=== PATIENT | male | born 1980 | race Two or more races ===

== ENCOUNTER 2017-12-04 21:58 | Emergency (ER) | payer OTHER ==
[2017-12-04 22:04] VITALS: BP 140/78
[2017-12-04] MEDS ORDERED: BUFFERED LIDOCAINE 10 ML SYRINGE SUBQ STA (22:13)
--- NOTE | 2017-12-04 22:15 | ED Physician Documentation ---
PD HPI HEENT - Stated complaint Stated Complaint: BOIL ON RT CHEEK - Chief complaint Chief Complaint: Heent - History obtained from History obtained from: Patient - History of Present Illness Timing - onset: Other (He has a painful lesion on the right side of the face that has been there for about a week and growing. No fevers.) Review of Systems Constitutional: denies: Fever, Chills Nose: denies: Rhinorrhea / runny nose, Congestion, Foreign Body Throat: denies: Sore throat PD PAST MEDICAL HISTORY - Present Medications Home Medications: Ambulatory Orders Medication Instructions Recorded Confirmed Sulfamethoxazole/Trimethoprim 1 each PO BID 7 Days tablet 12/04/17 [Sulfamethoxazole-Tmp Ds Tablet] - Allergies Allergies/Adverse Reactions: Allergies Allergy/AdvReac Type Severity Reaction Status Date / Time No Known Drug Allergies Allergy Verified 12/04/17 22:04 PD ED PE NORMAL - Vitals Vital signs reviewed: Yes - General General: Alert and oriented X 3, No acute distress - HEENT HEENT: Other (There is a pointed abscess on the right side of the face just anterior to the right temporomandibular joint.) - Neck Neck: Supple, no meningeal sign, No bony TTP - Cardiac Cardiac: RRR, No murmur - Neuro Neuro: Alert and oriented X 3, Normal speech - Psych Psych: Normal mood, Normal affect Results - Vitals Vitals: Vital Signs - 24 hr 12/04/17 22:01 Temperature 36.4 C L Heart Rate 78 Respiratory 16 Rate Blood Pressure 140/78 H O2 Saturation 98 Oxygen O2 Source Room air Procedures - Abscess I&D (location) R face Preparation: Alcohol, Lidocaine 1% (with bicarb, ring block) Incision: Incised with scalpel, Purulent drainage (and sebaceous), Loculations broken, Culture obtained. No: Packed (too small) Other: Pt tolerated well, Dressing applied, Antibiotic prescribed Departure - Departure Disposition: Home, Self Care Clinical Impression: Abscess Condition: Good Record reviewed to determine appropriate education?: Yes Instructions: ED Abscess IandD Prescriptions: Sulfamethoxazole/Trimethoprim [Sulfamethoxazole-Tmp Ds Tablet] 1 each PO BID 7 Days tablet Comments: We are performing a wound culture, the results should be done in 48-72 hours. If antibiotic change is necessary we will call you. Return if worse in the meantime, especially if you develop increased pain, fevers, cannot keep down the medication. Otherwise follow-up with your physician in approximately 2-3 days.
[2017-12-04] MEDS ORDERED: SULFAMETH/TRIMETH DS 800/160 MG TABLET PO STA (22:16)
== END 2017-12-04 22:37 | disposition home or self-care (01) ==
LOC: ED 21:58
DX: L02.01 Cutaneous abscess of face (principal)
CPT/HCPCS: 10060; 87070; 87205; 99283; A9270; 87077

== ENCOUNTER 2017-12-08 19:51 | Emergency (ER) | payer OTHER ==
[2017-12-08] MEDS ORDERED: KETOROLAC 60 MG/2 ML VIAL IM STA (20:12)
[2017-12-08] MEDS ORDERED: DEXAMETHASONE 10 MG/ML VIAL PO STA (20:13)
[2017-12-08] MEDS ORDERED: CYCLOBENZAPRINE 10 MG Prepack 2 PO PRN (20:13)
--- NOTE | 2017-12-08 20:15 | ED Physician Documentation ---
PD HPI BACK PAIN - Stated complaint Stated Complaint: BACK PX - Chief complaint Chief Complaint: Back Pain - History obtained from History obtained from: Patient, Family - History of Present Illness Timing - details: Gradual onset Pain level max: 9 Pain level now: 7 Location: Lower, Right, Left Quality: Pain, Spasm Associated symptoms: No: Fever, Weakness, Numbness, Incontinent of urine, Unable to urinate, Hematuria Improves with: Rest Worsened by: Movement, Lifting Contributing factors: Lifting, Twisting, Other (moving his motorcycles today). No: Cancer, IVDA Similar symptoms before: Diagnosis (back spasm) Recently seen: Not recently seen Review of Systems Musculoskeletal: denies: Back pain Neurologic: denies: Focal weakness, Numbness PD PAST MEDICAL HISTORY - Past Medical History Past Medical History: Yes Musculoskeletal: Chronic back pain - Past Surgical History Past Surgical History: Yes General: Other - Present Medications Home Medications: Ambulatory Orders Medication Instructions Recorded Confirmed Sulfamethoxazole/Trimethoprim 1 each PO BID 7 Days tablet 12/04/17 12/08/17 [Sulfamethoxazole-Tmp Ds Tablet] Cyclobenzaprine [Flexeril] 10 mg PO TID PRN #20 tablet 12/08/17 Ibuprofen [Motrin] 800 mg PO Q8H PRN #30 tablet 12/08/17 - Allergies Allergies/Adverse Reactions: Allergies Allergy/AdvReac Type Severity Reaction Status Date / Time No Known Drug Allergies Allergy Verified 12/04/17 22:04 - Social History Does the pt smoke?: No Smoking Status: Never smoker Does the pt drink ETOH?: Yes ETOH Use: Wine Does the pt have substance abuse?: No - Immunizations Immunizations are current?: Yes - POLST Patient has POLST: No PD ED PE NORMAL - Vitals Vital signs reviewed: Yes - General General: Alert and oriented X 3, No acute distress - HEENT HEENT: Moist mucous membranes - Neck Neck: Supple, no meningeal sign - Cardiac Cardiac: RRR - Respiratory Respiratory: No respiratory distress, Clear bilaterally - Abdomen Abdomen: Soft, Non tender - Back Back: No spinal TTP, Other (mild low lumbar paraspinal tenderness and spasm.) - Derm Derm: Warm and dry - Extremities Extremities: Other (normal bilateral lower extremity patellar and ankle jerk reflexes. Normal great toe extension bilaterally) - Neuro Neuro: Alert and oriented X 3, No motor deficit, No sensory deficit Results - Vitals Vitals: Vital Signs - 24 hr 12/08/17 12/08/17 20:00 20:37 Temperature 36.0 C L Heart Rate 77 71 Respiratory 14 18 Rate Blood Pressure 126/88 H 130/84 H O2 Saturation 99 98 Oxygen O2 Source Room air PD MEDICAL DECISION MAKING - ED course Complexity details: considered differential (no cauda equina, no spinal epidural abscess, no fracture, no aortic dissection or evidence of aneursym rupture), d/w patient ED course: Patient is a 37-year-old gentleman who presents to the emergency department with low back pain and paraspinal spasm. Given a dose of Toradol here as well as dexamethasone. Will prescribe Flexeril for home as well. Will follow up with his PCP for further evaluation and care. No evidence of cauda equina, epidural abscess or fracture. Patient counseled regarding signs and symptoms for which I believe and urgent re-evaluation would be necessary. Patient with good understanding of and agreement to plan and is comfortable going home at this time This document was made in part using voice recognition software. While efforts are made to proofread this document, sound alike and grammatical errors may occur. Departure - Departure Disposition: 01 Home, Self Care Clinical Impression: Back muscle spasm Condition: Good Instructions: ED Spasm Back No Trauma Follow-Up: XU MONTENEGRO MD [Primary Care Provider] - Within 1 week Prescriptions: Cyclobenzaprine [Flexeril] 10 mg PO TID PRN #20 tablet PRN Reason: Spasms Ibuprofen [Motrin] 800 mg PO Q8H PRN #30 tablet PRN Reason: PAIN &/OR FEVER Comments: Return if you worsen. This should improve over the next few days. Do not drive or operate heavy machinery while taking flexeril. Do not drink alcohol with this medication either. Discharge Date/Time: 12/08/17 20:37
[2017-12-08] MEDS ORDERED: CHERRY SYRUP 10 ML UDC PO ONE (20:25)
[2017-12-08 20:39] VITALS: BP 130/84
== END 2017-12-08 20:37 | disposition home or self-care (01) ==
LOC: ED 19:51
DX: M62.830 Muscle spasm of back (principal)
CPT/HCPCS: 96372; 99283; A9270